=== PATIENT | male | born 1990 | race Caucasian/White ===

== ENCOUNTER 2018-05-06 09:00 | Emergency (ER) | payer OTHER ==
[~2018-05-06] VITALS: Ht 165.1 cm; Wt 70.3 kg
[2018-05-06] MEDS ORDERED: TUSSI PRES-B L120 M1 PO (10:48)
[2018-05-06] MEDS ORDERED: OSEL75CA PO (10:48)
== END 2018-05-06 11:02 | disposition home or self-care (01) ==
LOC: ER 09:00
DX: B34.9 Viral infection, unspecified (principal)

== ENCOUNTER 2019-06-19 07:20 | Emergency (ER) | payer OTHER ==
[~2019-06-19] VITALS: Ht 172.7 cm; Wt 68.0 kg
[~2019-06-19 07:20] MED LIST: OSEL75CA PO; TUSSI PRES-B L120 M1 PO
== END 2019-06-19 12:20 | disposition home or self-care (01) ==
LOC: ER 07:20
DX: R53.81 Other malaise (principal); R50.9 Fever, unspecified